=== PATIENT | male | born 2000 | race African-American/Black ===

== ENCOUNTER 2021-08-09 15:43 | Emergency (ER) | payer MEDICAID, OTHER ==
[~2021-08-09] VITALS: Ht 172.7 cm; Wt 80.0 kg
[2021-08-09 16:34] VITALS: BP 112/70
[2021-08-09] MEDS ORDERED: LIDOCAINE HCL/PF 1% 10 MG/ML 5ML VIAL INFIL ONE (17:45)
[2021-08-09] MEDS ORDERED: TOPUD PO (19:18)
== END 2021-08-09 19:39 | disposition home or self-care (01) ==
LOC: ER 15:43
DX: S91.311A Laceration without foreign body, right foot, initial encounter (principal); F84.0 Autistic disorder; W22.8XXA Striking against or struck by other objects, initial encounter; Y93.01 Activity, walking, marching and hiking; Y92.89 Other specified places as the place of occurrence of the external cause
CPT/HCPCS: 12001; 73620; 99283; J3490; Z7610

== ENCOUNTER 2025-07-14 12:46 | Emergency (ER) | payer OTHER ==
[~2025-07-14] VITALS: Ht 172.7 cm; Wt 80.0 kg
[~2025-07-14 12:46] MED LIST: TOPUD PO
[2025-07-14 13:21] VITALS: O2SAT 100
[2025-07-14] MEDS ORDERED: SULF1TAB48 MT (13:59)
[2025-07-14] MEDS ORDERED: IBUP-2028 MT (13:59)
[2025-07-14 14:20] VITALS: BP 118/60; PULSE 80; RESP 16; TEMP 36.8; O2SAT 100
== END 2025-07-14 14:21 | disposition home or self-care (01) ==
LOC: ER 12:46
DX: L02.91 Cutaneous abscess, unspecified (principal); F41.9 Anxiety disorder, unspecified
CPT/HCPCS: 99283